=== PATIENT | female | born 1960 | race American Indian/Alaskan Native ===

== ENCOUNTER 2018-09-22 10:38 | Outpatient (CLI) | payer MEDICAID ==
--- NOTE | 2018-09-22 13:52 | Fluoroscopy Report ---
BARIUM SWALLOW: History: GERD, dysphagia, upper gastric pain. Findings: A prominent cricopharyngeus muscle is identified which could represent cricopharyngeal achalasia. The remainder of the esophagus is normal caliber and mucosal pattern. There is no evidence for mass. Occasional episodes of esophageal spasm were witnessed during this exam. No hiatal hernia was witnessed. No episodes of reflux were witnessed. The patient was able to ingest the barium tablet which transverse the esophagus easily. IMPRESSION: Findings suggestive of cricopharyngeal achalasia. Occasional esophageal spasm was witnessed during this exam.
== END 2018-09-22 10:39 | disposition home or self-care (01) ==
LOC: FLUORO 10:38
PROVIDERS: ATTEND Internal Medicine Gastroenterology
DX: K21.9 Gastro-esophageal reflux disease without esophagitis (principal); K62.5 Hemorrhage of anus and rectum; J44.9 Chronic obstructive pulmonary disease, unspecified
CPT/HCPCS: 74220

== ENCOUNTER 2018-11-11 10:53 | Emergency (ER) | payer MEDICAID ==
[2018-11-11 11:02] VITALS: BP 122/77
[2018-11-11] MEDS ORDERED: ALUM-MAG HYDROX-SIMETH 200-200-20MG/5ML PO ONE (11:39)
[2018-11-11] MEDS ORDERED: BENTYL IM ONE (11:39)
[2018-11-11] MEDS ORDERED: PEPCID PO ONE (11:39)
[2018-11-11] MEDS ORDERED: TORADOL IM ONE (11:39)
[2018-11-11] MEDS ORDERED: LIDOCAINE VISCOUS 2% PO ONE (11:39)
[2018-11-11 11:50] LABS: Basophils # (Auto) 0.1 K/mm3 (0.0-0.1); Basophils % (Auto) 0.8 % (0.0-1.8); Eosinophils # (Auto) 0.4 K/mm3 (0.0-0.4); Eosinophils % (Auto) 5.4 % (0.0-4.3); Hemoglobin 13.2 gm/dl (10.1-14.3); Lymphocytes # (Auto) 2.1 K/mm3 (1.2-5.4); Lymphocytes % (Auto) 30.5 % (13.4-35.0); Mean Corpuscular HGB Conc 34 % (30-34); Mean Corpuscular Volume 91 fl (79-97); Monocytes # (Auto) 0.3 K/mm3 (0.0-0.8); Monocytes % (Auto) 4.6 % (0.0-7.3); Red Blood Count 4.27 M/mm3 (3.65-5.03)
[2018-11-11 12:13] LABS: BUN/Creatinine Ratio 11; Blood Urea Nitrogen 10 mg/dL (7-17); Calcium 9.5 mg/dL (8.4-10.2); Hemolysis Index 48
[2018-11-11 12:47] LABS: Bilirubin,Urine NEG (Negative); Blood,Urine NEG (Negative); Color,Urine Yellow (Yellow); Mucus,Urine 1+ /HPF; Protein,Urine <15 mg/dL mg/dL (Negative); Urobilinogen,Urine < 2.0 mg/dL (<2.0)
[2018-11-11 12:55] LABS: Platelet Count 222 K/mm3 (140-440)
--- NOTE | 2018-11-11 14:24 | Emergency Department Report ---
ED Abdominal Pain HPI - General Chief Complaint: Abdominal Pain Stated Complaint: ABDOMINAL PAIN Time Seen by Provider: 11/11/18 11:28 Source: patient Mode of arrival: Ambulatory Limitations: No Limitations - History of Present Illness Initial Comments: Patient is a 58-year-old female who has had several months of upper abdominal pain. Patient saw Dr. Chirinos with [facility] and was sent today for an ultrasound of her abdomen. Patient states there is some nausea and vomiting occasionally. Patient has a new prescription for Zofran and Carafate given by Dr. Chirinos. Patient states there is no fevers chills and diarrhea. Patient states the pain is crampy in nature. Severity scale (0 -10): 10 - Related Data Previous Rx's Medication Instructions Recorded Last Taken Type Dicyclomine [Bentyl] 20 mg PO QID #10 tablet 11/11/18 Unknown Rx traMADol [Ultram] 50 mg PO Q6HR PRN #12 tablet 11/11/18 Unknown Rx Allergies Allergy/AdvReac Type Severity Reaction Status Date / Time aspirin Allergy Swelling Verified 05/05/18 08:26 latex Allergy Swelling Verified 05/05/18 08:26 ED Review of Systems ROS: Stated complaint: ABDOMINAL PAIN Other details as noted in HPI Comment: All other systems reviewed and negative ED Past Medical Hx - Past Medical History Previous Medical History?: Yes Hx Asthma: Yes Hx COPD: Yes Additional medical history: PTSD - Surgical History Past Surgical History?: No - Social History Smoking Status: Never Smoker Substance Use Type: Alcohol - Medications Home Medications: Home Medications Medication Instructions Recorded Confirmed Last Taken Type Dicyclomine [Bentyl] 20 mg PO QID #10 tablet 11/11/18 Unknown Rx traMADol [Ultram] 50 mg PO Q6HR PRN #12 tablet 11/11/18 Unknown Rx ED Physical Exam - General Limitations: No Limitations General appearance: alert, anxious, in distress - Head Head exam: Present: atraumatic, normocephalic - Eye Eye exam: Present: normal appearance, PERRL, EOMI - ENT ENT exam: Present: mucous membranes moist - Neck Neck exam: Present: normal inspection - Respiratory Respiratory exam: Present: normal lung sounds bilaterally. Absent: respiratory distress, wheezes, rales, rhonchi - Cardiovascular Cardiovascular Exam: Present: regular rate, normal rhythm, normal heart sounds. Absent: systolic murmur, diastolic murmur, rubs, gallop - GI/Abdominal GI/Abdominal exam: Present: soft, tenderness (difuse), normal bowel sounds. Absent: distended, guarding, rebound - Extremities Exam Extremities exam: Present: normal inspection - Back Exam Back exam: Present: normal inspection - Neurological Exam Neurological exam: Present: alert, oriented X3 - Psychiatric Psychiatric exam: Present: normal affect, normal mood - Skin Skin exam: Present: warm, dry, intact, normal color. Absent: rash ED Course Vital Signs 11/11/18 11/11/18 11:01 11:53 Temperature 97.6 F Pulse Rate 62 Respiratory 16 18 Rate Blood Pressure 122/77 O2 Sat by Pulse 96 Oximetry ED Medical Decision Making - Lab Data Result diagrams: 11/11/18 11:24 11/11/18 11:24 Lab Results 11/11/18 11/11/18 11/11/18 Range/Units 11:24 11:24 11:54 WBC 6.8 (4.5-11.0) K/mm3 RBC 4.27 (3.65-5.03) M/mm3 Hgb 13.2 (10.1-14.3) gm/dl Hct 39.0 (30.3-42.9) % MCV 91 (79-97) fl MCH 31 (28-32) pg MCHC 34 (30-34) % RDW 13.0 L (13.2-15.2) % Plt Count 222 (140-440) K/mm3 Lymph % (Auto) 30.5 (13.4-35.0) % [place] % (Auto) 4.6 (0.0-7.3) % Eos % (Auto) 5.4 H (0.0-4.3) % Baso % (Auto) 0.8 (0.0-1.8) % Lymph # 2.1 (1.2-5.4) K/mm3 Tyler # 0.3 (0.0-0.8) K/mm3 Eos # 0.4 (0.0-0.4) K/mm3 Baso # 0.1 (0.0-0.1) K/mm3 Seg Neutrophils % 58.7 (40.0-70.0) % Seg Neutrophils # 4.0 (1.8-7.7) K/mm3 Sodium 141 (137-145) mmol/L Potassium 4.4 (3.6-5.0) mmol/L Chloride 107.2 H (98-107) mmol/L Carbon Dioxide 23 (22-30) mmol/L Anion Gap 15 mmol/L BUN 10 (7-17) mg/dL Creatinine 0.9 (0.7-1.2) mg/dL Estimated GFR > 60 ml/min BUN/Creatinine Ratio 11 % Glucose 142 H (65-100) mg/dL Calcium 9.5 (8.4-10.2) mg/dL Lipase 23 (13-60) units/L Urine Color Yellow (Yellow) Urine Turbidity Hazy (Clear) Urine pH 5.0 (5.0-7.0) Ur Specific [place] 1.019 (1.003-1.030) Urine Protein <15 mg/dl (Negative) mg/dL Urine Glucose (UA) Neg (Negative) mg/dL Urine Ketones Neg (Negative) mg/dL Urine Blood Neg (Negative) Urine Nitrite Neg (Negative) Urine Bilirubin Neg (Negative) Urine Urobilinogen < 2.0 (<2.0) mg/dL Ur Leukocyte Esterase Neg (Negative) Urine WBC (Auto) 1.0 (0.0-6.0) /HPF Urine RBC (Auto) 3.0 (0.0-6.0) /HPF U Epithel Cells (Auto) 9.0 (0-13.0) /HPF Urine Mucus 1+ /HPF - Radiology Data Reporting MD: Pantera White Dictation Time: November 11, 2018 10:58 Attorney Recruiter: Not available Department Store General Manager Date: LIMITED RUQ ABDOMINAL ULTRASOUND INDICATION: RUQ PAIN. COMPARISON: No relevant prior imaging study available. FINDINGS: Pancreas: Visualized portions show no significant abnormality. Abdominal Aorta: No significant abnormality. IVC: No significant abnormality. Liver: Diffusely increased hepatic echogenicity which typically indicates hepatic steatosis.. Normal hepatopedal blood flow in the main portal vein. Gallbladder: No significant abnormality. Bile ducts: No significant abnormality. Common bile duct measures 3 mm. Right kidney: No significant abnormality visualized.. Free fluid: None. Additional Findings: None. IMPRESSION: 1. Sonographic findings suggesting hepatic steatosis. 2. No significant abnormality of the gallbladder. Signer Name: Pantera White MD Signed: 11/11/2018 10:58 AM Workstation Name: [id number] - Medical Decision Making She was given medications for pain relief. Ultrasound was negative for cholelithiasis. Left her studies are essentially unremarkable. Patient will have follow-up back with Dr. Chirinos and will be given something for pain. Critical care attestation.: If time is entered above; I have spent that time in minutes in the direct care of this critically ill patient, excluding procedure time. ED Disposition Clinical Impression: Abdominal pain Qualifiers: Abdominal location: generalized Qualified Code(s): R10.84 - Generalized abdominal pain Disposition: - TO HOME OR SELFCARE Is pt being admited?: No Does the pt Need Aspirin: No Condition: Stable Instructions: Abdominal Pain (ED) Referrals: MCKINLEY GARCIA MD [Primary Care Provider] - 3-5 Days Time of Disposition: 14:26
== END 2018-11-11 14:34 | disposition home or self-care (01) ==
LOC: ED 10:53
DX: R10.84 Generalized abdominal pain (principal); R11.2 Nausea with vomiting, unspecified; J44.9 Chronic obstructive pulmonary disease, unspecified; Z79.899 Other long term (current) drug therapy; Z88.6 Allergy status to analgesic agent; Z91.040 Latex allergy status
CPT/HCPCS: 36415; 76705; 80048; 81001; 83690; 85025; 96372; 99283; J0500; J1885

== ENCOUNTER 2019-01-07 04:11 | Emergency (ER) | payer MEDICAID ==
[2019-01-07 07:22] LABS: Bacteria,Urine 2+ /HPF (Negative); Bilirubin,Urine NEG (Negative); Blood,Urine SM (Negative); Color,Urine Straw (Yellow); Protein,Urine <15 mg/dL mg/dL (Negative); Urobilinogen,Urine < 2.0 mg/dL (<2.0)
[2019-01-07] MEDS ORDERED: KETOROLAC 30 MG/1 ML INJ IV ONE (07:57)
[2019-01-07 08:00] LABS: Basophils % (Auto) 0.4 % (0.0-1.8); Eosinophils # (Auto) 0.1 K/mm3 (0.0-0.4); Eosinophils % (Auto) 1.5 % (0.0-4.3); Hematocrit 38.2 % (30.3-42.9); Hemoglobin 12.7 gm/dl (10.1-14.3); Lymphocytes # (Auto) 1.2 K/mm3 (1.2-5.4); Lymphocytes % (Auto) 12.9 % (13.4-35.0); Mean Corpuscular HGB Conc 33 % (30-34); Mean Corpuscular Volume 89 fl (79-97); Monocytes # (Auto) 0.4 K/mm3 (0.0-0.8); Monocytes % (Auto) 3.9 % (0.0-7.3); Platelet Count 190 K/mm3 (140-440); Red Blood Count 4.28 M/mm3 (3.65-5.03); Red Cell Distribution Width 13.2 % (13.2-15.2)
[2019-01-07] MEDS ORDERED: KETOROLAC 30 MG/1 ML INJ ONE (08:00)
[2019-01-07 08:08] LABS: Alanine Aminotransferase 33 units/L (7-56); Albumin 4.3 g/dL (3.9-5); BUN/Creatinine Ratio 11; Blood Urea Nitrogen 11 mg/dL (7-17); Calcium 9.6 mg/dL (8.4-10.2); Hemolysis Index 10
[2019-01-07] MEDS ORDERED: KETOROLAC 30 MG/1 ML INJ IM ONE (08:18)
[2019-01-07] MEDS ORDERED: ACETAMINOPHEN 325 MG TAB PO ONE (08:18)
[2019-01-07] MEDS ORDERED: levoFLOXacin 750 MG TAB PO STA (08:59)
[2019-01-07 09:26] VITALS: BP 124/59
== END 2019-01-07 09:51 | disposition home or self-care (01) ==
LOC: ED 04:11
DX: R68.83 Chills (without fever) (principal); M54.9 Dorsalgia, unspecified; Z53.21 Procedure and treatment not carried out due to patient leaving prior to being seen by health care provider
CPT/HCPCS: 36415; 80053; 81001; 85025; 87086; 96372; 96374; J1885

== ENCOUNTER 2019-03-03 07:40 | Observation (INO) | payer MEDICAID ==
[2019-03-01 12:37] LABS: Basophils % (Auto) 0.8 % (0.0-1.8); Eosinophils # (Auto) 0.2 K/mm3 (0.0-0.4); Eosinophils % (Auto) 3.5 % (0.0-4.3); Hematocrit 37.5 % (30.3-42.9); Hemoglobin 12.5 gm/dl (10.1-14.3); Lymphocytes # (Auto) 1.6 K/mm3 (1.2-5.4); Lymphocytes % (Auto) 31.4 % (13.4-35.0); Mean Corpuscular HGB Conc 33 % (30-34); Mean Corpuscular Volume 90 fl (79-97); Monocytes # (Auto) 0.3 K/mm3 (0.0-0.8); Monocytes % (Auto) 5.6 % (0.0-7.3); Platelet Count 216 K/mm3 (140-440); Red Blood Count 4.16 M/mm3 (3.65-5.03); Red Cell Distribution Width 13.3 % (13.2-15.2)
[2019-03-01 12:50] LABS: BUN/Creatinine Ratio 10; Blood Urea Nitrogen 10 mg/dL (7-17); Calcium 9.5 mg/dL (8.4-10.2); Hemolysis Index 11
--- NOTE | 2019-03-01 16:20 | Anesthesia Consultation ---
Anesthesia Consult and Med Hx Date of service: 03/01/19 - Airway Anesthetic Teeth Evaluation: Good ROM Head & Neck: Adequate Mental/Hyoid Distance: Adequate Mallampati Class: Class II Intubation Access Assessment: Good - Pulmonary Exam CTA: Yes - Cardiac Exam Cardiac Exam: RRR - Pre-Operative Health Status ASA Pre-Surgery Classification: ASA2 Proposed Anesthetic Plan: General - Pulmonary Hx Asthma: Yes COPD: Yes - Cardiovascular System Hx Hypertension: Yes - Central Nervous System Hx Psychiatric Problems: Yes - Other Systems Hx Alcohol Use: Yes (Occas) Hx Cancer: No
--- NOTE | 2019-03-03 07:28 | History and Physical Report ---
History of Present Illness Date of examination: 03/03/19 Date of admission: 03/03/2019 Chief complaint: Uterine fibroids History of present illness: 58-year-old with a history of symptomatic uterine fibroids. The patient had a pelvic ultrasound demonstrating a 2.3 cm leiomyoma. The patient complains of worsening chronic pelvic pain and dyspareunia. She has attempted expectant management however she notes that her symptoms are worsening and has elected to undergo definitive surgical management Past History Past Medical History: asthma, hypertension Past Surgical History: no surgical history SORTER LAUNDRY ARTICLES History: fibroids Social history: single - Obstetrical History : 5 Para: 4 Hx # Term Pregnancies: 4 Number of Pregnancies: 0 Spontaneous Abortions: 1 Induced : 0 Number of Living Children: 5 Medications and Allergies Allergies Allergy/AdvReac Type Severity Reaction Status Date / Time aspirin Allergy Hives Verified 02/22/19 14:30 latex Allergy Hives Verified 02/22/19 14:30 morphine Allergy Shaking Verified 02/22/19 14:30 Home Medications Medication Instructions Recorded Confirmed Last Taken Type Nitrofurantoin [place]/M-Cryst 100 mg PO Q12HR #20 capsule 01/07/19 03/01/19 Unknown Rx [Macrobid CAP] Albuterol Sulfate [Proventil Hfa] 2 puff IH Q4H PRN 03/01/19 03/01/19 Unknown History Citalopram [celeXA] 10 mg PO QDAY 03/01/19 03/01/19 Unknown History Diclofenac Sodium 75 mg PO BID 03/01/19 03/01/19 Unknown History Fluticasone/Salmeterol [Advair 1 puff IH DAILY 03/01/19 03/01/19 Unknown History Diskus 250-50 mcg] Ipratropium (Nf) [Atrovent] 2 puff IH TID 03/01/19 03/01/19 Unknown History Losartan [Cozaar] 100 mg PO QDAY 03/01/19 03/01/19 Unknown History Omeprazole 40 mg PO DAILY 03/01/19 03/01/19 Unknown History Ondansetron [Zofran TAB] 4 mg PO Q8HR PRN 03/01/19 03/01/19 Unknown History Pantoprazole [Protonix] 40 mg PO BID 03/01/19 03/01/19 Unknown History SUMAtriptan SUCCINATE [Imitrex] 50 mg PO BID PRN 03/01/19 03/01/19 Unknown History Sucralfate [Carafate] 1 gm PO QID 03/01/19 03/01/19 Unknown History Tizanidine HCl [Tizanidine 2mg tab] 2 mg PO HS 03/01/19 03/01/19 Unknown History Zolpidem [Ambien] 5 mg PO QHS PRN 03/01/19 03/01/19 Unknown History amLODIPine [Norvasc] 10 mg PO DAILY 03/01/19 03/01/19 Unknown History raNITIdine HCl [Zantac] 150 mg PO DAILY 03/01/19 03/01/19 Unknown History traMADol [Ultram] 50 mg PO Q12H PRN 03/01/19 03/01/19 Unknown History Active Meds: Active Medications Lactated Ringer's (Lactated Ringers) 1,000 mls @ 100 mls/hr IV DIRECT DM Review of Systems All systems: negative Genitourinary: pelvic pain, other (dyspareunia) - Vital Signs Vital signs: Vital Signs Temp Pulse Resp BP Pulse Ox 97.2 F L 60 20 146/50 97 03/01/19 11:40 03/01/19 11:40 03/01/19 11:40 03/01/19 11:40 03/01/19 11:40 Temp Pulse Resp BP Pulse Ox 97.2 F L 60 20 146/50 97 03/01/19 11:40 03/01/19 11:40 03/01/19 11:40 03/01/19 11:40 03/01/19 11:40 - Physical Exam Breasts: Positive: deferred Cardiovascular: Regular rate Lungs: Positive: Clear to auscultation Abdomen: Positive: normal appearance Results Result Diagrams: 03/01/19 11:55 03/01/19 11:55 All other labs normal. Assessment and Plan - Patient Problems (1) Leiomyoma Status: Acute Plan to address problem: The patient has elected to undergo a robotic hysterectomy and bilateral salpingo-oophorectomy (2) Chronic pelvic pain in female Status: Acute (3) Dyspareunia Status: Acute
[~2019-03-03 07:40] MED LIST: LACTATED RINGERS 1,000 ML IV SCH; MIDAZOLAM 2 MG/2 ML INJ IV NR
[2019-03-03] MEDS ORDERED: ceFAZolin/Water 2 GM/20 ML 2 GM/20 ML SYRINGE IV NR (08:00)
[2019-03-03] MEDS ORDERED: fentaNYL 100 MCG/2 ML INJ IV NR (08:54)
[2019-03-03] MEDS ORDERED: GABAPENTIN 300 MG CAP ONE (08:58)
[2019-03-03] MEDS ORDERED: fentaNYL 100 MCG/2 ML INJ ONE ×2 (08:59→09:44)
--- NOTE | 2019-03-03 08:59 | Anesthesia Day of Surgery ---
Anesthesia Day of Surgery - Day of Surgery Patient Examined: Yes Patient H&P Reviewed: Yes Patient is NPO: Yes
[2019-03-03] MEDS ORDERED: MIDAZOLAM 2 MG/2 ML INJ IV NR (09:00)
[2019-03-03] MEDS ORDERED: BUPIVACAINE-EPINEPHRINE/PF 0.5%-1:200,000 (30 ML) VIAL INFILTRATI ONE (09:00)
[2019-03-03] MEDS ORDERED: ROCURONIUM 50 MG/5 ML INJ IV ONE (09:44)
[2019-03-03] MEDS ORDERED: NEOMY 40 MG/POLYMYXIN B 200,000 UNITS/ML (GU) AMPULE IR ONE ×2 (09:44→11:11)
[2019-03-03] MEDS ORDERED: MIDAZOLAM 2 MG/2 ML INJ ONE (09:44)
[2019-03-03] MEDS ORDERED: LIDOCAINE MPF (2%) 20 MG/1 ML VIAL 5 ML ONE (09:44)
[2019-03-03] MEDS ORDERED: PROPOFOL 200 MG/20 ML VIAL IV ONE (09:44)
[2019-03-03] MEDS ORDERED: GABAPENTIN 300 MG CAP PO NR (10:00)
[2019-03-03] MEDS ORDERED: dexAMETHasone 20 MG/5 ML VIAL ONE (10:41)
[2019-03-03] MEDS ORDERED: ONDANSETRON 4 MG/2 ML INJ ONE (10:41)
[2019-03-03] MEDS ORDERED: METOCLOPRAMIDE 10 MG/2 ML INJ ONE (10:41)
[2019-03-03] MEDS ORDERED: PHENYLEPHRINE 10 MG/1 ML INJ SDV ONE (10:44)
[2019-03-03] MEDS ORDERED: SODIUM CHLORIDE 0.9% IRR 1,500 ML BOTTLE IR ONE (11:12)
[2019-03-03] MEDS ORDERED: SODIUM CHLORIDE 0.9% IRRIG SOLN 2000 ML IR ONE (11:12)
[2019-03-03] MEDS ORDERED: GLYCOPYRROLATE 0.4 MG/2 ML INJ ONE (11:27)
[2019-03-03] MEDS ORDERED: NEOSTIGMINE 10MG/10 ML INJ MDV ONE (11:27)
[2019-03-03] MEDS ORDERED: KETOROLAC 30 MG/1 ML INJ ONE (11:27)
[2019-03-03] MEDS ORDERED: ACETAMINOPHEN 325 MG TAB PO PRN (11:40)
[2019-03-03] MEDS ORDERED: ZOLPIDEM 10 MG TAB PO PRN (11:40)
[2019-03-03] MEDS ORDERED: oxyCODONE /ACETAMINOPHEN 5-325MG TAB PO PRN (11:40)
[2019-03-03] MEDS ORDERED: IBUPROFEN 800 MG TAB PO PRN (11:40)
[2019-03-03] MEDS ORDERED: ONDANSETRON 4 MG/2 ML INJ IV PRN (11:40)
[2019-03-03] MEDS ORDERED: HYDROmorphone 1 MG/1 ML INJ IV PRN ×2 (11:40→12:34)
--- NOTE | 2019-03-03 11:40 | Operative Report ---
Operative Report Operative Report: Date of surgery: 03/03/2019 Preoperative diagnoses: Symptomatic uterine fibroids; chronic pelvic pain; dyspareunia Postoperative diagnoses: Same as above Procedure: Robotic hysterectomy and bilateral salpingo-oophorectomy Surgeon: Cheryl Ortez M.D. Tire Spotter: Tom Harding Anesthesia: Gen. endotracheal anesthesia Estimated blood loss: 50 mL Pathology: Uterus, cervix, bilateral tubes and ovaries, uterine fibroids Indication: 58-year-old with a history of symptomatic uterine fibroids. The patient attempted expectant management but have worsening of her symptoms and elected to undergo definitive surgical management. Procedure: The patient was taken to the operating room and given general endotracheal anesthesia without complication. She is prepped and draped in a normal sterile fashion. A bivalve speculum was placed in the patient's vagina and a single- tooth tenaculum placed on the anterior lip of the cervix. The uterus was sounded with the uterine sound. A Clicknation uterine manipulator was placed in the bivalve speculum was then removed. Attention was then turned to the patient's abdomen where a 12 millimeter supra umbilical skin incision was then made. A Veress needle was placed and peritoneal entry was verified water-filled syringe. Insufflation of the peritoneal cavity was performed with CO2 gas. The 12 mm trocar was then placed under direct visualization. An additional 8 mm trocar was placed on the patient's left and right lateral side just opposite of the supraumbilical trocar. An additional 5 mm right lateral trocar was then placed as the accessory port. The Brayden Wooten device was used to close the fascia of the 12 mm incision. The patient was then placed in steep Trendelenburg. General survey revealed a moderately enlarged fibroid uterus with multiple leiomyomas. The ovaries and tubes were normal in appearance. The da Saurabh robot was then engaged. A fenestrated forcep was placed in arm 2 and a vessel sealer was placed in arm 1. The surgeon then transferred to the surgical console. The infundibulopelvic ligament was then isolated on the right. The vessel sealer was used to coagulate the ligament which was then transected. The tube and ovary were transected from the supply. The round ligament was then coagulated and transected also. The vesicouterine peritoneum was then entered from the patient's right side. The uterine vessels were then coagulated with the vessel sealer. The vessels were then transected . Attention was then turned to the patient's left side where the infundibulopelvic ligament and mesosalpinx were again isolated coagulated and transected. The vesical peritoneum was then entered from the left and joined in the midline. Peritoneum was reflected off of the lower uterine segment. Uterine vessels were then coagulated and then transected. The blood supply to the uterus was adequately contained, a posterior colpotomy was made. The V care ring was visualized. Posterior colpotomy was created with the monopolar scissors. The incision was continued circumferentially until anterior colpotomy was made. The cervix and uterus were amputated from the vaginal cuff. The uterus was then removed along with the tubes, fibroids and ovaries bilaterally through the vagina and a warm laparotomy sponge was placed and maintain the pneumoperitoneum. The vaginal cuff was then closed in a running fashion with V lock suture. Irrigation of the pelvis was performed. Hemoblast was applied to the incision. The skin was then reapproximated with 4-0 Monocryl. The tissue was sent to pathology which included the cervix, uterus, tubes and ovaries. The patient was then successfully extubated. She was then taken to the recovery room in stable condition. All sponge laps and needle counts were correct x2.
[2019-03-03] MEDS ORDERED: LACTATED RINGERS 1,000 ML ONE (11:55)
[2019-03-03] MEDS ORDERED: D5W/LACTATED RINGERS 1,000 ML IV SCH (12:00)
[2019-03-03] MEDS ORDERED: HYDROmorphone 1 MG/1 ML INJ ONE ×2 (12:34→12:49)
[2019-03-03] MEDS ORDERED: MEPERIDINE 25 MG/1 ML INJ ONE (12:56)
[2019-03-03] MEDS ORDERED: MEPERIDINE 25 MG/1 ML INJ IV PRN (12:58)
[2019-03-03] MEDS ORDERED: D5W/LACTATED RINGERS 1,000 ML IV ONE (13:17)
--- NOTE | 2019-03-03 15:06 | Post Anesthesia Evaluation ---
- Post Anesthesia Evaluation Patient Participated: Yes Airway Patent: Yes Stable Respiratory Function: Yes Nausea/Vomiting: No Temp > 96.8F: Yes Pain Manageable: Yes Adequeate Hydration: Yes Anesthesia Complications: No Block Receding Appropriately: Not Applicable Patient on Ventilator: No
[2019-03-03] MEDS: KETOROLAC 30 MG/1 ML INJ IV SCH (20:25)
[2019-03-03] MEDS ORDERED: LOSARTAN 50 MG TAB PO SCH (23:07)
[2019-03-04 05:15] LABS: Hemoglobin 12.4 gm/dl (10.1-14.3)
[2019-03-04] MEDS ORDERED: amLODIPine 10 MG TAB PO SCH (06:00)
--- NOTE | 2019-03-04 08:13 | Progress Note ---
Assessment and Plan - Patient Problems (1) Leiomyoma Current Visit: No Status: Acute Plan to address problem: patient doing well advance diet (2) Chronic pelvic pain in female Current Visit: No Status: Acute (3) Dyspareunia Current Visit: No Status: Acute Subjective - Subjective Date of service: 03/04/19 Interval history: Patient states pain has been controlled. Reports being able to void Patient reports: appetite normal, voiding normally, pain well controlled Objective - Vital Signs Latest vital signs: Vital Signs Temp Pulse Resp BP BP Pulse Ox 03/04/19 06:20 164/84 03/04/19 04:34 98.2 F 73 20 163/85 90 03/04/19 00:21 97.8 F 70 20 159/80 95 03/03/19 23:55 88 165/87 03/03/19 20:14 98.0 F 80 20 167/86 91 03/03/19 17:09 97.8 F 73 20 138/87 90 03/03/19 15:50 97.7 F 75 18 138/87 03/03/19 14:44 16 03/03/19 13:45 161/88 03/03/19 13:35 97.7 F 72 16 165/87 96 03/03/19 13:00 66 10 L 147/80 96 03/03/19 12:45 71 14 140/85 94 03/03/19 12:30 74 10 L 172/93 94 03/03/19 12:25 74 12 163/101 98 03/03/19 12:20 80 14 170/74 98 03/03/19 12:15 80 13 165/85 98 03/03/19 12:10 84 14 159/93 95 03/03/19 12:04 98.4 F 88 15 158/89 95 03/03/19 10:00 16 03/03/19 09:25 86 13 168/78 95 03/03/19 09:20 84 14 152/81 95 03/03/19 09:14 74 17 147/80 95 03/03/19 09:09 63 16 151/83 96 03/03/19 09:04 59 L 11 L 153/84 98 03/03/19 09:03 18 03/03/19 08:59 60 17 147/89 98 03/03/19 08:15 98.1 F 58 L 14 159/90 95 Intake and Output 03/03/19 03/04/19 03/04/19 22:59 06:59 14:59 Intake Total 360 480 Output Total 3000 Balance 360 -2520 Intake: Oral 480 Intake, Free Water 360 Output: Urine 3000 Indwelling Catheter 3000 Other: Total, Intake Amount 240 Total, Output Amount 3000 Voiding Method Indwelling Catheter - Exam Abdomen: Present: normal appearance, soft
--- NOTE | 2019-03-04 08:15 | Discharge Summary ---
Providers - Providers Date of Admission: 03/03/19 11:40 Date of discharge: 03/04/19 Attending physician: CHRIS PAYNE Primary care physician: PARA OPERATOR Hospitalization Reason for admission: other (chronic pelvic pain) Procedure: other (robotic hysterectomy and BSO) Incision: normal Discharge diagnosis: other (Chronic pelvic pain) Hospital course: Patient was admitted the day of surgery and underwent a robotic hysterectomy. See op note. Postop uneventful Condition at discharge: Good Disposition: DC-01 TO HOME OR SELFCARE - Discharge Diagnoses (1) Leiomyoma Status: Acute (2) Chronic pelvic pain in female Status: Acute (3) Dyspareunia Status: Acute Plan - Discharge Medications Prescriptions: Ibuprofen [Motrin] 800 mg PO Q8HR PRN #60 tablet PRN Reason: Pain, Mild (1-3) oxyCODONE /ACETAMINOPHEN [Percocet 5/325] 1 tab PO Q6HR PRN #30 tablet PRN Reason: Pain - Provider Discharge Summary Activity: no sex for 6 weeks, no heavy lifting 4 weeks, no strenuous exercise Diet: routine Instructions: routine Additional instructions: [] Smoking cessation referral if applicable(refer to patient education folder for contact #) [] Refer to [facility]'s [facility] Booklet Call your doctor immediately for: * Fever > 100.5 * Heavy vaginal bleeding ( >1 pad per hour) * Severe persistent headache * Shortness of breath * Reddened, hot, painful area to leg or breast * Drainage or odor from incision. * Keep incision clean and dry at all times and follow doctor's instructions regarding bathing/showering schedule followup in 4 weeks - Follow up plan Forms: Work/School Excuse Out Patient
[2019-03-04] MEDS: KETOROLAC 30 MG/1 ML INJ IV SCH (09:40)
[2019-03-04 09:58] VITALS: BP 155/68
== END 2019-03-04 10:20 | disposition home or self-care (01) ==
LOC: OR 07:40 → OB 11:40
PROVIDERS: ADMIT Obstetrics & Gynecology; ATTEND Obstetrics & Gynecology
DX: D25.9 Leiomyoma of uterus, unspecified (principal); J45.909 Unspecified asthma, uncomplicated; I10 Essential (primary) hypertension; R10.2 Pelvic and perineal pain; G89.29 Other chronic pain; N94.10 Unspecified dyspareunia
CPT/HCPCS: 36415; 58571; 64450; 80048; 85014; 85018; 85025; 86850; 86900; 86901; 88307; 96374; 96375; 96376; A4217; G0378; J0690; J1100; J1170; J1885; J2175; J2250; J2370; J2405; J2704; J2710; J2765; J3010; J7120; J7121; S2900